=== PATIENT | male | born 1995 | race Two or more races ===

== ENCOUNTER 2024-07-26 22:11 | Emergency (ER) | payer OTHER ==
[~2024-07-26] VITALS: Ht 190.5 cm; Wt 151.1 kg
--- NOTE | 2024-07-26 23:32 | DVH ---
CT HEAD WITHOUT CONTRAST INDICATION: head injury COMPARISON: None TECHNIQUE: CT of the head without intravenous contrast. RADIATION DOSE: CTDIvol: 65.28 mGy, DLP: 1046.21 mGy*cm FINDINGS: There is no evidence of intracranial hemorrhage, infarct, extra-axial collection, mass effect, midli ne shift, herniation or hydrocephalus. The ventricles, sulci and cisterns are normal. The lamar-white differentiation is normal. Large mucous retention cysts noted in both maxillary sinuses; otherwise un remarkable. Soft tissues and osseous structures are unremarkable. IMPRESSION: No intracranial abnormality identified.
[2024-07-26] MEDS ORDERED: CYCL-837 PO (23:41)
[2024-07-26] MEDS ORDERED: IBUP-1455 PO (23:41)
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
[2024-07-27 01:28] VITALS: BP 134/81; TEMP 97.6
[2024-07-27 01:36] VITALS: PULSE 95; RESP 14; O2SAT 96
== END 2024-07-27 01:39 | disposition home or self-care (01) ==
LOC: ER 22:11
DX: S09.8XXA Other specified injuries of head, initial encounter (principal); R51.9 Headache, unspecified; R42 Dizziness and giddiness; X58.XXXA Exposure to other specified factors, initial encounter; Y93.89 Activity, other specified; Y92.89 Other specified places as the place of occurrence of the external cause; Y99.8 Other external cause status
CPT/HCPCS: 70450